=== PATIENT | female | born 1995 | race Caucasian/White ===

== ENCOUNTER 2017-05-23 13:38 | Emergency (ER) | payer MEDICAID ==
[~2017-05-23] VITALS: Ht 167.6 cm; Wt 61.3 kg
[2017-05-23 14:04] VITALS: BP 128/65
--- NOTE | 2017-05-23 17:20 | NUR ---
PT TO BED 5
--- NOTE | 2017-05-23 17:21 | NUR ---
21F BIB FRIEND C/O BL LOWER ABDOMINAL CRAMPING, NON-RADIATING, 5/10 X 2 DAYS; PT C/O MILD NAUSEA, BUT STATES NO VOMITING OR DIARRHEA AT THIS TIME; ABDOMEN SOFT, NON-TENDER, ACTIVE BOWEL SOUNDS X 4 QUADRANTS; PT STATES TOOK HOME TEST, AND HAS CONCERNS ABOUT A MISCARRIAGE; PT STATES NO VAGINAL BLEEDING AT THIS TIME; A1; PT AA&OX4, PERRLA, BL LUNG SOUNDS CLEAR, RR EVEN/UNLABORED, SKIN IS WARM/DRY/INTACT AT THIS TIME; PT RESTING IN BED W/ HOB ELEVATED AND IN LOWEST POSITION; POSITIONED FOR COMFORT; ER MD MADE AWARE OF STATUS. WILL CONTINUE TO MONITOR.
--- NOTE | 2017-05-23 17:54 | NUR ---
ER MD DR. DASILVA EVALUATING PT AT BEDSIDE.
--- NOTE | 2017-05-23 18:01 | NUR ---
LAB AT BEDSIDE.
[2017-05-23 18:25] LABS: ANION GAP 13.5 (8-16); CALCIUM 8.4 mg/dL (8.5-10.1); CARBON DIOXIDE 25.4 mmol/L (21-32); CREATININE 0.8 mg/dL (0.6-1.3); POTASSIUM 3.9 mmol/L (3.5-5.1)
[2017-05-23 18:25] LABS: APPEARANCE,URINE CLEAR (CLEAR); BILIRUBIN,URINE NEGATIVE (NEGATIVE); BLOOD, URINE NEGATIVE (NEGATIVE); COLOR,URINE YELLOW (YELLOW); LEUKOCYTE ESTERASE ,URINE NEGATIVE (NEGATIVE); NITRITE, URINE NEGATIVE (NEGATIVE); PH,URINE 6.5 (5.0-9.0); PROTEIN,URINE NEGATIVE (NEGATIVE); UGLUCOSE NEGATIVE (NEGATIVE); UROBILINOGEN,URINE 0.2 EU/dL (0.2 - 1)
[2017-05-23 18:26] LABS: HEMOGLOBIN 14.3 g/dL (12.0-16.0); MEAN CORPUSCULAR VOLUME 90 fL (80-94); RED BLOOD CELL COUNT(AUTO) 4.78 MIL/uL (4.20-5.40); WHITE BLOOD COUNT (AUTO) 9.2 K/uL (4.5-11.0)
[2017-05-23 18:27] LABS: MEAN CORPUSCULAR HEMOGLOBIN 30 pg (27-31); MEAN CORPUSCULAR HGB CONC 33 g/dL (33-37); PLATELET COUNT (AUTO) 238 K/uL (140-450); RED CELL DISTRIBUTION WIDTH 12.1 % (11.6-13.7)
[2017-05-23 18:33] LABS: TOTAL BILIRUBIN 0.2 mg/dL (0.0-1.0); TOTAL PROTEIN, SERUM 7.5 g/dL (6.4-8.2)
[2017-05-23 18:34] LABS: NEUTROPHILS % (MANUAL) 65 (43-65)
[2017-05-23 18:35] LABS: EOSINOPHILS % (MANUAL) 2 % (0-4); LYMPHOCYTES % (MANUAL) 28 % (20-46); MONOCYTES % (MANUAL) 5 % (5-12); PLATELET ESTIMATE ADEQUATE
--- NOTE | 2017-05-23 18:41 | NUR ---
PT APPEARS TO BE RESTING COMFORTABLY IN BED; RR EVEN/UNLABORED; POSITIONED FOR COMFORT; WILL CONTINUE TO MONITOR.
--- NOTE | 2017-05-23 19:11 | NUR ---
Pt report given to SHASHANK MILAN. Transfer of care at this time.
--- NOTE | 2017-05-23 19:15 | NUR ---
RECEIVED REPORT FROM SHASHANK CORTEZ. PT IS AWAKE, ALERT, ORIENTED X 4. PT IS RESTING ON BED COMFORTABLY. WILL CONTINUE TO MONITOR.
--- NOTE | 2017-05-23 19:21 | NUR ---
DR. DASILVA AT BEDSIDE.
[2017-05-23 19:33] VITALS: BP 120/75
--- NOTE | 2017-05-23 19:33 | NUR ---
Patient discharged with v/s stable. Written and verbal after care instructions given and explained. Patient alert, oriented and verbalized understanding of instructions. Ambulatory with steady gait. All questions addressed prior to discharge. ID band removed. Patient advised to follow up with PMD. Rx of VITAMINS TABLET 1 TAB ONCE A DAY given. Patient educated on indication of medication including possible reaction and side effects. Opportunity to ask questions provided and answered.
== END 2017-05-23 19:33 | disposition home or self-care (01) ==
LOC: MED 13:38
DX: O26.891 Other specified pregnancy related conditions, first trimester (principal); R10.2 Pelvic and perineal pain; R50.9 Fever, unspecified; Z3A.01 Less than 8 weeks gestation of pregnancy
CPT/HCPCS: 36415; 80053; 81003; 81025; 84702; 85025; 99284

== ENCOUNTER 2017-06-19 13:20 | Emergency (ER) | payer MEDICAID ==
[~2017-06-19] VITALS: Ht 167.6 cm; Wt 59.0 kg
[2017-06-19 13:42] VITALS: BP 124/61
--- NOTE | 2017-06-19 14:55 | NUR ---
21/F BIB FAMILY C/O ABDOMINAL PAIN SINCE LAST NOC. PT STATES SHE IS , BUT HAS NOT SEEN AN [employer] YET. LMP 04/18/17. DENIES N/V/D; SKIN IS PINK/WARM/DRY; AAOX4 WITH EVEN AND STEADY GAIT; LUNGS CLEAR BL; HR EVEN AND REGULAR; PT DENIES ANY FEVER, CP, SOB, OR COUGH AT THIS TIME; PATIENT STATES PAIN OF 6/10 AT THIS TIME; VSS; PATIENT POSITIONED FOR COMFORT; HOB ELEVATED; BEDRAILS UP X2; BED DOWN. ER MD MADE AWARE OF PT STATUS.
[2017-06-19 15:32] LABS: BASOPHILS # (AUTO) 0.3 K/uL (0.00-0.22); EOSINOPHILS # (AUTO) 0.3 K/uL (0-0.4); HEMATOCRIT 39.8 % (36-48); HEMOGLOBIN 13.1 g/dL (12.0-16.0); LYMPHOCYTES # (AUTO) 2.3 K/uL (2.5-16.5); MEAN CORPUSCULAR HEMOGLOBIN 29 pg (27-31); MEAN CORPUSCULAR HGB CONC 33 g/dL (33-37); MEAN CORPUSCULAR VOLUME 90 fL (80-94); MONOCYTES # (AUTO) 0.5 K/uL (0.8-1.0); NEUTROPHILS # (AUTO) 6.7 K/uL (1.8-7.7); PLATELET COUNT (AUTO) 238 K/uL (140-450); RED BLOOD CELL COUNT(AUTO) 4.44 MIL/uL (4.20-5.40); RED CELL DISTRIBUTION WIDTH 12.4 % (11.6-13.7); WHITE BLOOD COUNT (AUTO) 10.1 K/uL (4.5-11.0)
--- NOTE | 2017-06-19 15:42 | NUR ---
ER MD DR ROWLEY EVALUATING PT AT BEDSIDE.
--- NOTE | 2017-06-19 15:46 | NUR ---
Patient appears to be resting comfortably in bed. Vital Signs within normal limits. Respirations even and unlabored.WILL CONTINUE TO MONITOR.
[2017-06-19 15:48] LABS: ANION GAP 12.5 (8-16); CARBON DIOXIDE 26.2 mmol/L (21-32); CREATININE 0.6 mg/dL (0.6-1.3); POTASSIUM 3.7 mmol/L (3.5-5.1)
[2017-06-19 15:53] LABS: ALBUMIN 3.7 g/dL (3.4-5.0); TOTAL BILIRUBIN 0.3 mg/dL (0.0-1.0)
[2017-06-19 15:56] LABS: APPEARANCE,URINE CLEAR (CLEAR); BILIRUBIN,URINE NEGATIVE (NEGATIVE); BLOOD, URINE NEGATIVE (NEGATIVE); COLOR,URINE YELLOW (YELLOW); LEUKOCYTE ESTERASE ,URINE NEGATIVE (NEGATIVE); NITRITE, URINE NEGATIVE (NEGATIVE); UGLUCOSE NEGATIVE (NEGATIVE)
--- NOTE | 2017-06-19 16:20 | NUR ---
PT TAKEN TO US VIA W/C ACCOMPANIED BY [employer].
--- NOTE | 2017-06-19 16:44 | NUR ---
BACK FROM US
--- NOTE | 2017-06-19 17:00 | NUR ---
Patient appears to be resting comfortably in bed. Vital Signs within normal limits. Respirations even and unlabored.WILL CONTINUE TO MONITOR.
[2017-06-19] MEDS ORDERED: ACETAMINOPHEN EXTRA STRENGTH 500 MG TAB PO ONE (17:30)
[2017-06-19] MEDS ORDERED: ACETAMINOPHEN EXTRA STRENGTH 500 MG TAB ONE (17:32)
[2017-06-19 18:01] VITALS: BP 118/71
--- NOTE | 2017-06-19 18:01 | NUR ---
Patient discharged with v/s stable. Written and verbal after care instructions given and explained. Patient verbalized understanding. Ambulatory with steady gait. All questions addressed prior to discharge. Advised to follow up with PMD.
== END 2017-06-19 18:01 | disposition home or self-care (01) ==
LOC: MED 13:20
DX: O26.891 Other specified pregnancy related conditions, first trimester (principal); R10.30 Lower abdominal pain, unspecified
CPT/HCPCS: 36415; 76801; 76817; 80053; 81003; 81025; 82150; 83690; 84702; 85025; 99285

== ENCOUNTER 2017-07-06 17:40 | Emergency (ER) | payer MEDICAID ==
[~2017-07-06] VITALS: Ht 170.2 cm; Wt 62.8 kg
[2017-07-06 17:49] VITALS: BP 127/70
--- NOTE | 2017-07-06 17:55 | NUR ---
PATIENT AMBULATED TO ER BED 8.
--- NOTE | 2017-07-06 18:00 | NUR ---
PATIENT PRESENTS TO ED WITH C/O SUPRAPUBIC PAIN WITH BROWN DC X YESTERDAY TRANSVAGINAL ULTRASOUND 2 DAYS AGO BY PT'S OB--NOTED NO HR TO FETUS A1 .DENIES N/V/D; SKIN IS PINK/WARM/DRY; AAOX4 WITH EVEN AND STEADY GAIT; LUNGS CLEAR BL; HR EVEN AND REGULAR; PT DENIES ANY FEVER, CP, SOB, OR COUGH AT THIS TIME; PATIENT STATES PAIN OF 8/10 AT THIS TIME;PATIENT POSITIONED FOR COMFORT; HOB ELEVATED; BEDRAILS UP X2; BED DOWN. ER MD MADE AWARE OF PT STATUS.
--- NOTE | 2017-07-06 18:05 | NUR ---
PATIENT BEING EVALUATED BY DR. FOY.
--- NOTE | 2017-07-06 18:10 | NUR ---
ULTRASOUND AT BEDSIDE;
[2017-07-06 18:20] LABS: BASOPHILS # (AUTO) 0.3 K/uL (0.00-0.22); EOSINOPHILS # (AUTO) 0.3 K/uL (0-0.4); HEMOGLOBIN 14.1 g/dL (12.0-16.0); LYMPHOCYTES # (AUTO) 2.4 K/uL (2.5-16.5); MEAN CORPUSCULAR HEMOGLOBIN 30 pg (27-31); MEAN CORPUSCULAR HGB CONC 34 g/dL (33-37); MEAN CORPUSCULAR VOLUME 89 fL (80-94); MONOCYTES # (AUTO) 0.4 K/uL (0.8-1.0); NEUTROPHILS # (AUTO) 7.3 K/uL (1.8-7.7); PLATELET COUNT (AUTO) 223 K/uL (140-450); RED BLOOD CELL COUNT(AUTO) 4.72 MIL/uL (4.20-5.40); RED CELL DISTRIBUTION WIDTH 12.2 % (11.6-13.7); WHITE BLOOD COUNT (AUTO) 10.7 K/uL (4.5-11.0)
[2017-07-06 18:31] LABS: ANION GAP 11.2 (8-16); CALCIUM 8.9 mg/dL (8.5-10.1); CARBON DIOXIDE 26.6 mmol/L (21-32); CREATININE 0.7 mg/dL (0.6-1.3); POTASSIUM 3.8 mmol/L (3.5-5.1)
[2017-07-06 18:34] LABS: APPEARANCE,URINE CLEAR (CLEAR); BILIRUBIN,URINE NEGATIVE (NEGATIVE); BLOOD, URINE TRACE-I (NEGATIVE); COLOR,URINE YELLOW (YELLOW); LEUKOCYTE ESTERASE ,URINE NEGATIVE (NEGATIVE); NITRITE, URINE NEGATIVE (NEGATIVE); PROTEIN,URINE NEGATIVE (NEGATIVE); UGLUCOSE NEGATIVE (NEGATIVE); UROBILINOGEN,URINE 0.2 EU/dL (0.2 - 1)
[2017-07-06 18:35] LABS: BACTERIA,URINE 1-9 (FEW) /HPF (None Seen); SQUAMOUS EPITHELIAL CELL,UR 4-10 (MOD) /LPF (0-3 (FEW)); WBC,URINE 0-5 (RARE) /HPF (0-5)
--- NOTE | 2017-07-06 19:10 | NUR ---
Patient discharged with v/s stable. Written and verbal after care instructions given and explained. Patient alert, oriented and verbalized understanding of instructions. Ambulatory with steady gait. All questions addressed prior to discharge. ID band removed. Patient advised to follow up with PMD. Rx of ZOFRAN AND MOTRIN given. Patient educated on indication of medication including possible reaction and side effects. Opportunity to ask questions provided and answered.
[2017-07-06 19:11] VITALS: BP 125/77
== END 2017-07-06 19:10 | disposition home or self-care (01) ==
LOC: MED 17:40
DX: O26.891 Other specified pregnancy related conditions, first trimester (principal); N89.8 Other specified noninflammatory disorders of vagina; R10.9 Unspecified abdominal pain; R03.0 Elevated blood-pressure reading, without diagnosis of hypertension; Z3A.09 9 weeks gestation of pregnancy
CPT/HCPCS: 36415; 76801; 80048; 81001; 81025; 84702; 85025; 86900; 86901; 99285; Q0092

== ENCOUNTER 2017-08-02 09:35 | Day surgery (SDC) | payer MEDICAID, OTHER ==
[~2017-08-02] VITALS: Ht 167.6 cm; Wt 62.3 kg
[2017-08-02 09:42] VITALS: BP 140/88
--- NOTE | 2017-08-02 09:51 | NUR ---
PATIENT TO BED 3 AT THIS TIME.
--- NOTE | 2017-08-02 09:55 | NUR ---
21/F BIB MOM REFERED BY DR. Hannah VICENTE FOR A D/C VIA MD NOTE. PT STS BELIEVES TO BE 8WKS . LMP 04/18/17. STS RECURRENT ULTRASOUNDS AT THE OB'S OFFICE SHOWS NO HR X3WKS. C/O LOWER BACK PAIN AND MILD CRAMPING. DENIES VAGINAL BLEED OR ANY OTHER SYMPTOMS. PT DENIES N/V/D; SKIN IS INTACT, PINK/WARM/DRY; AAOX4, PERRL, WITH EVEN AND STEADY GAIT; LUNGS CLEAR BL, BREATHING UNLABORED; HR EVEN AND REGULAR, BL PERIPHERAL PULSES PRESENT; BS ACTIVE X4, NO TENDERNESS TO PALPATION. VSS; PATIENT POSITIONED FOR COMFORT; HOB ELEVATED; BEDRAILS UP X2; BED DOWN.
--- NOTE | 2017-08-02 10:10 | NUR ---
21G IV TO LAC. IVF GIVEN PER MAR.
--- NOTE | 2017-08-02 10:35 | NUR ---
PT AMBULATE TO RESTROOM.
[2017-08-02] MEDS ORDERED: KETOROLAC 30 MG/ML VIAL IVP ONE (10:40)
[2017-08-02 11:00] VITALS: BP 106/45
--- NOTE | 2017-08-02 11:18 | NUR ---
Patient will be admitted to care of DR. MARIELLE VICENTE. Admited to Med/Surg. Will go to room 104-B. Belongings list completed. Report to SHASHANK JONES.
--- NOTE | 2017-08-02 11:30 | NUR ---
RECEIVED PT FROM ER FOR SAME DAY SURGERY BY DR. Patricia VICENTE, ASSISTED BY ER NURSE. AWAKE. ALERT ORIENTEDX4. NO SOB NOTED. PT COMPLAINED OF MILD LOWE BACK PAIN. MEDICATED TORADOL AT ER. PT AMBULATORY. SAFETY PRECAUTION IN PLACE. CALL LIGHT WITHIN REACH.
--- NOTE | 2017-08-02 12:49 | NUR ---
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 PT ON STABLE CONDITION.
[2017-08-02] MEDS ORDERED: PROPOFOL 200 MG/20 ML VIAL IV ONE (13:16)
[2017-08-02] MEDS ORDERED: LACTATED RINGERS 1,000 ML IV SCH (13:22)
[2017-08-02] MEDS ORDERED: MEPERIDINE 25 MG/ML SYR IVP PRN (13:25)
[2017-08-02] MEDS ORDERED: ONDANSETRON 4 MG/2 ML VIAL IVP PRN ×2 (13:25→13:35)
[2017-08-02] MEDS ORDERED: diphenhydrAMINE 50 MG/ML VIAL IVP PRN (13:25)
[2017-08-02] MEDS ORDERED: MIDAZOLAM 2 MG/2 ML VIAL ONE (13:26)
[2017-08-02] MEDS ORDERED: fentaNYL 0.05 MG/ML VIAL ONE (13:27)
[2017-08-02] MEDS ORDERED: MEPERIDINE 25 MG/ML SYR ONE (13:27)
[2017-08-02] MEDS ORDERED: IBUPROFEN 800 MG TAB PO PRN (13:35)
[2017-08-02] MEDS ORDERED: ACETAMINOPHEN/CODEINE 300/30MG 1 TAB PO PRN (13:35)
[2017-08-02] MEDS ORDERED: MORPHINE SULFATE 4 MG/ML SYR IM/IVP PRN (13:35)
[2017-08-02] MEDS: HYDROmorphone 1 MG/ML AMP IVP PRN ×4 (13:55→14:25)
[2017-08-02] MEDS ORDERED: HYDROmorphone PFS 2 MG/ML SYR ONE (14:12)
[2017-08-02 15:10] VITALS: BP 100/47
--- NOTE | 2017-08-02 15:10 | NUR ---
PT CAME BACK FROM OR. ON STABLE CONDITION. MOTHER AT BEDSIDE.
[2017-08-02 15:43] VITALS: BP 98/48
--- NOTE | 2017-08-02 15:44 | NUR ---
REMINDED PT TO FOLLOW UP WITH PCP WITHIN 1 WEEK. PT VERBALIZED UNDERSTANDING.
--- NOTE | 2017-08-02 15:45 | NUR ---
PT KEPT CLEAN, DRY AND COMFORTABLE, DISCHARGE INSTRUCTIONS AND HEALTH TEACHINGS GIVEN AND EXPLAINED TO PT. PT VERBALIZED UNDERSTANDING AND SIGNED DISCHARGE PAPERS. NO ACTIVE BLEEDING NOTED. MINIMAL SPOTTING NOTED ON PERIPAD. POSITIVE URINE OUTPUT NOTED. IV CANNULA REMOVED AND INTACT. NAME ARMBAND REMOVED. PT WHEELED OUT OF THE HOSPITAL ASSISTED BY LANI. NO SOB NOTED. PT DISCHARGED ON STABLE CONDITION.
== END 2017-08-02 15:50 | disposition home or self-care (01) ==
LOC: MED 09:35 → MTU 11:13 → MED 15:50
PROVIDERS: ATTEND Obstetrics & Gynecology
DX: O03.4 Incomplete spontaneous abortion without complication (principal); Z3A.11 11 weeks gestation of pregnancy; E03.9 Hypothyroidism, unspecified; J45.909 Unspecified asthma, uncomplicated; G43.909 Migraine, unspecified, not intractable, without status migrainosus; Z98.890 Other specified postprocedural states; Z79.899 Other long term (current) drug therapy
CPT/HCPCS: 59812; 81025; 88305; 96374; 99285; J1170; J1885; J2175; J2250; J2704; J3010; J7030; J7120